=== PATIENT | male | born 1985 | race Caucasian/White ===

== ENCOUNTER 2020-07-24 16:00 | Outpatient (CLI) | payer OTHER ==
--- NOTE | 2020-07-24 20:07 | CT ---
CT OF THE ABDOMEN AND PELVIS WITHOUT IV CONTRAST: 07/24/20 HISTORY: Left sided renal stones, left upper quadrant pain and gross hematuria. COMPARISON: None. FINDINGS: Lung bases are clear. Unopacified liver, gallbladder, pancreas, adrenal glands and spleen appear with in normal limits. No renal or ureteral calculus is evident. No hydronephrosis is noted. There is a retroaortic left renal vein. There is a normal retrocecal appendix. There is a mild amount of retained stool within the colon. Small bowel is normal in caliber. The blad yolette is partially decompressed. There are small phleboliths within the lower pelvis. No free fluid is evident. The rectum and perirectal soft tissues appear within normal limits. There is moderate disc degenerative disease at L5-S1. No acute fracture or subluxation is evident. IMPRESSION: No renal or ureteral calculus. No hydronephrosis is seen. Mild amount of retained stool within the colon. POS: [facility]
== END 2020-07-24 16:01 | disposition home or self-care (01) ==
LOC: BICCT 16:00
PROVIDERS: ATTEND Urology
DX: N20.0 Calculus of kidney (principal); K59.00 Constipation, unspecified
CPT/HCPCS: 74176